=== PATIENT | male | born 2000 | race African-American/Black ===

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

== ENCOUNTER 2018-03-10 09:25 | Emergency (ER) | payer OTHER ==
[2018-03-10] MEDS ORDERED: NS 0.9% 1000 ML* 1,000 ML IV ONE (09:51)
[2018-03-10] MEDS ORDERED: Aspirin 81 mg CHEW TAB* 81 MG TAB.CHEW PO ONE (09:52)
[2018-03-10 10:47] LABS: ABS Basophils 0.1 10^3/ul (0-0.2); ABS Eosinophils 0.1 10^3/ul (0-0.6); ABS Lymphocytes 1.9 10^3/ul (1.0-4.8); ABS Monocytes 0.8 10^3/ul (0-0.8); ABS Neutrophils 4.7 10^3/ul (1.5-7.7); ABS Nucleated RBC 0 10^3/ul; Eosinophil % 1.3 % (0-6); Hematocrit 44 % (42-52); Hemoglobin 14.6 g/dl (14.0-18.0); Lymphocyte % 25.6 % (25-47); Mean Corpuscular HGB Conc 34 g/dl (31-36); Mean Corpuscular Hemoglobin 30 pg (27-31); Mean Corpuscular Volume 90 fL (80-94); Mean Platelet Volume 8.5 um3 (7.4-10.4); Nucleated Red Blood Cells % 0; Platelet Count 181 10^3/ul (150-450); Red Blood Count 4.83 10^6/ul (4.0-5.4); Red Cell Distribution Width 14 % (10.5-15); White Blood Count 7.6 10^3/ul (3.5-10.8)
[2018-03-10 10:54] LABS: INR 1.06 (0.77-1.02)
--- NOTE | 2018-03-10 11:08 | RAD ---
HISTORY: Chest pain COMPARISONS: None VIEWS: 1: frontal portable view of the chest at 10:40 AM FINDINGS: LINES AND TUBES: None. CARDIOMEDIASTINAL SILHOUETTE: The cardiomediastinal silhouette is normal for portable technique. PLEURA: The costophrenic angles are sharp. No pleural abnormalities are noted. LUNG PARENCHYMA: The lungs are clear. ABDOMEN: The upper abdomen is clear. There is no subphrenic gas. BONES AND SOFT TISSUES: No bone or soft tissue abnormalities are noted. IMPRESSION: NO ACTIVE CARDIOPULMONARY DISEASE.
[2018-03-10] MEDS ORDERED: Ketorolac INJ* 30 MG/ML 1 ML VIAL IV ONE (12:30)
--- NOTE | 2018-03-10 14:49 | ECHO ---
Patient: DANGELO PARK [facility] Rec#: [id number] : 2000 Date: 03/10/2018 Age: 17y Height: 187.96 cm / 74.0 in Weight: 74.84 kg / 164.9 lbs Sex: M BSA: 2 Room#: -5 Admit Date#: 03/10/2018 Type: Inpatient Referring: Darius Jimenez MD Reading: Flor Melton MD Personal Care Service Provider: Ana Quiroz [facility] Transthoracic Echocardiogram Indication: CP//HOCM BP: 136/69 HR: 65 Rhythm: NSR Findings History: Familial HOCM,CP. Technical Comments: The study quality is good. Completed at 1337. Left Ventricle: The left ventricular chamber size is mildly dilated. Mild concentric left ventricular hypertrophy is observed. Global left ventricular wall motion and contractility are within normal limits. There is normal left ventricular systolic function. The estimated ejection fraction is 60-65%. Normal left ventricular diastolic filling is observed. Left Atrium: The left atrial chamber size is normal. Right Ventricle: The right ventricular cavity size is normal. The right ventricular global systolic function is low normal. Right Atrium: The right atrial cavity size is normal. Aortic Valve: The aortic valve is trileaflet. There is no evidence of aortic valve thickening. There is a trace of aortic regurgitation. There is no evidence of aortic stenosis. Mitral Valve: The mitral valve leaflets are mildly thickened. There is a trace of mitral regurgitation. There is no evidence of mitral stenosis. Tricuspid Valve: The tricuspid valve leaflets are normal. There is mild tricuspid regurgitation. There is evidence of borderline pulmonary hypertension. There is no tricuspid stenosis. Pulmonic Valve: The pulmonic valve appears normal. There is no evidence of pulmonic regurgitation. There is no pulmonic stenosis. Pericardium: The pericardium appears normal. Aorta: There is no dilatation of the ascending aorta. There is no dilatation of the aortic arch. There is no dilation of the aortic root. Pulmonary Artery: The main pulmonary artery appears normal. Venous: The inferior vena cava is dilated. There is a greater than 50% respiratory change in the inferior vena cava dimension. Conclusions Mild LV chamber dilatation and mild concentric left ventricular hypertrophy observed. Global left ventricular wall motion and contractility are within normal limits. The estimated ejection fraction is 60-65%. Normal left ventricular diastolic filling is observed. The right ventricular global systolic function is low normal. All valves appear structurally normal. There is a trace of aortic regurgitation. There is a trace of mitral regurgitation. There is mild tricuspid regurgitation. There is evidence of borderline pulmonary hypertension: 37 mmHg. The pericardium appears normal. Prior echo nt available at the time of this reading to compare. Measurements Name Value Normal Range RVIDd (AP) 2D 2.3 cm (0.9 - 2.6) RVDdMajor (2D) 4.3 cm (2.2 - 4.4) RAd ISD 4CH 4.7 cm (3.4 - 4.9) RA (A4C)W 3.8 cm (2.9 - 4.6) IVSd (2D) 1.3 cm (0.6 - 1) LVPWd (2D) 1.4 cm (0.6 - 1) LVIDd (2D) 5.5 cm (3.6 - 5.4) LVIDs (2D) 3.6 cm - LV FS (2D) 35 % (25 - 45) Aortic Annulus 2 cm (1.4 - 2.6) Ao root diameter (2D) 3.2 cm (2.1 - 3.5) Ascending Ao 2.4 cm (2.1 - 3.4) Aortic arch 1.9 cm (1.8 - 3.4) Descending Ao 1.3 cm - LA dimension (AP) 2D 3.1 cm (2.3 - 3.8) LAd ISD 4CH 5.4 cm (2.9 - 5.3) Name Value Normal Range LA ESV SP 4CH (A/L) 62 ml - LA ESV SP 2CH (A/L) 43 ml - LA ESV BP (A/L) 55 ml - LA ESV BP (A/L) index 27.73 ml/m2 - LA ESV SP 4CH (MOD) 55 ml - LA ESV SP 2CH (MOD) 41 ml - Name Value Normal Range MV E-wave Vmax 0.8 m/sec - MV deceleration time 230 msec - MV A-wave Vmax 0.5 m/sec - MV E:A ratio 1.69 ratio - LV septal e' Vmax 0.12 m/sec - LV lateral e' Vmax 0.19 m/sec - LV E:e' septal ratio 6.67 ratio - LV E:e' lateral ratio 4.21 ratio - Name Value Normal Range AV Vmax 1.4 m/sec - AV VTI 29.5 cm - AV peak gradient 7.77 mmHg - AV mean gradient 4.42 mmHg - LVOT Vmax 1 m/sec - LVOT VTI 20.6 cm - LVOT peak gradient 4.15 mmHg - LVOT mean gradient 2.06 mmHg - Name Value Normal Range TR Vmax 2.7 m/sec - TR peak gradient 29 mmHg - RAP 8 mmHg - RVSP 37 mmHg - IVC diameter 2.3 cm - Name Value Normal Range PV Vmax 0.9 m/sec - PV peak gradient 3.38 mmHg -
[2018-03-10] MEDS ORDERED: Ketorolac INJ* 30 MG/ML 1 ML VIAL IV PUSH ONE (16:01)
[2018-03-10 18:12] VITALS: BP 114/79
--- NOTE | 2018-03-10 19:28 | ED ---
Herminio Rivera Nilda, scribed for Darius Jimenez MD on 03/10/18 at 1012 . HPI Chest Pain - HPI Summary HPI Summary: This patient is a 17 year old M presenting to [facility] with a chief complaint of constant L-sided CP since last night while at rest. Last week pt reports back pain originally thought to be due to exercise. Back pain resolved but returned last night accompanied by CP. Back pain once again resolved but CP remains. The patient rates the aching chest pain 7/10 in severity. He states previous similar episode in high school, for which he was evaluated and Dx with Hypertrophic Cardiomyopathy. Pt states condition had caused pain and palpitations in the past. Symptoms aggravated by movement and deep inspiration, and alleviated by nothing. Patient reports recent travel to [place] by plane. Pt states no daily medications. - History of Current Complaint Chief Complaint: EDChestPainROMI Time Seen by Provider: 03/10/18 10:08 Hx Obtained From: Patient Onset/Duration: Started Days Ago, Still Present Timing: Constant Current Severity: Severe Pain Intensity: 7 Pain Scale Used: 0-10 Numeric Chest Pain Location: Left Lateral Chest Pain Radiates: No Character: Dull/Aching Aggravating Factor(s): Movement, Deep Breaths Alleviating Factor(s): Nothing Associated Signs and Symptoms: Positive: Other: - back pain (resolved) - Allergy/Home Medications Allergies/Adverse Reactions: Allergies Allergy/AdvReac Type Severity Reaction Status Date / Time No Known Allergies Allergy Verified 09/22/17 10:23 Home Medications: Home Medications NK [No Home Medications Reported] 03/10/18 [History Confirmed 03/10/18] PMH/Surg Hx/FS Hx/Imm Hx Endocrine/Hematology History: Denies: Hx Diabetes Cardiovascular History: Reports: Other Cardiovascular Problems/Disorders - Hypertrophic cardiomyopathy Denies: Hx Hypertension Infectious Disease History: No Infectious Disease History: Denies: Traveled Outside the US in Last 30 Days - Family History Known Family History: Positive: Hypertension - mother - Social History Alcohol Use: Occasionally Substance Use Type: Reports: Marijuana Substance Use Comment - Amount & Last Used: 2-3 x / month Smoking Status (MU): Never Smoked Tobacco Review of Systems Positive: Chest Pain Positive: Other - back pain (resolved) All Other Systems Reviewed And Are Negative: Yes Physical Exam - Summary Physical Exam Summary: Appearance: The patient is well-nourished in no acute distress and in no acute pain. Skin: The skin is warm and dry and skin color reflects adequate perfusion. HEENT: The head is normocephalic and atraumatic. The pupils are equal and reactive. The conjunctivae are clear and without drainage. Nares are patent and without drainage. Mouth reveals moist mucous membranes and the throat is without erythema and exudate. The external ears are intact. The ear canals are patent and without drainage. The tympanic membranes are intact. Neck: the neck is supple with full range of motion and non-tender. There are no carotid bruits. There is no neck vein distension. Respiratory: Mildly tender left anterior chest wall. Lungs are clear to auscultation. Breath sounds slightly decreased on left. Cardiovascular: Heart is regular rate and rhythm. There is no murmur or rub auscultated. There is no peripheral edema and pulses are symmetrical and equal. Cannot appreciate murmur with valsalva and squat. Abdomen: The abdomen is soft and non-tender. There are normal bowel sounds heard in all four quadrants and there is no organomegaly palpated. Musculoskeletal: There is no back tenderness noted. Extremities are non-tender with full range of motion. There is good capillary refill. There is no peripheral edema or calf tenderness elicited. Neurological: Patient is alert and oriented to person, place and time. The patient has symmetrical motor strength in all four extremities. Cranial nerves are grossly intact. Deep tendon reflexes are symmetrical and equal in all four extremities. Psychiatric: The patient has an appropriate affect and does not exhibit any anxiety or depression. Triage Information Reviewed: Yes Vital Signs On Initial Exam: Initial Vitals Temp Pulse Resp BP Pulse Ox 99.7 F 61 18 136/72 98 03/10/18 09:32 03/10/18 09:32 03/10/18 09:32 03/10/18 09:32 03/10/18 09:32 Vital Signs Reviewed: Yes Diagnostics - Vital Signs Vital Signs Temp Pulse Resp BP Pulse Ox 03/10/18 09:32 99.7 F 61 18 136/72 98 - Laboratory Lab Results: Lab Results 03/10/18 03/10/18 03/10/18 Range/Units 09:51 10:05 10:05 WBC 7.6 (3.5-10.8) 10^3/ul RBC 4.83 (4.0-5.4) 10^6/ul Hgb 14.6 (14.0-18.0) g/dl Hct 44 (42-52) % MCV 90 (80-94) fL MCH 30 (27-31) pg MCHC 34 (31-36) g/dl RDW 14 (10.5-15) % Plt Count 181 (150-450) 10^3/ul MPV 8.5 (7.4-10.4) um3 Neut % (Auto) 61.7 (38-83) % Lymph % (Auto) 25.6 (25-47) % [place] % (Auto) 10.7 H (0-7) % Eos % (Auto) 1.3 (0-6) % Baso % (Auto) 0.7 (0-2) % Absolute Neuts (auto) 4.7 (1.5-7.7) 10^3/ul Absolute Lymphs (auto) 1.9 (1.0-4.8) 10^3/ul Absolute Monos (auto) 0.8 (0-0.8) 10^3/ul Absolute Eos (auto) 0.1 (0-0.6) 10^3/ul Absolute Basos (auto) 0.1 (0-0.2) 10^3/ul Absolute Nucleated RBC 0 10^3/ul Nucleated RBC % 0 ESR 25 H (0-14) mm/Hr INR (Anticoag Therapy) 1.06 H (0.77-1.02) APTT 33.0 (26.0-36.3) seconds D-Dimer, Quantitative < 200 (Less Than 230) ng/mL Sodium (139-145) mmol/L Potassium (3.5-5.0) mmol/L Chloride (101-111) mmol/L Carbon Dioxide (22-32) mmol/L Anion Gap (2-11) mmol/L BUN (6-24) mg/dL Creatinine (0.67-1.17) mg/dL Est GFR ( Amer) (>60) Est GFR (Non-Af Amer) (>60) BUN/Creatinine Ratio (8-20) Glucose (70-100) mg/dL Lactic Acid (0.5-2.0) mmol/L Calcium (8.6-10.3) mg/dL Magnesium (1.9-2.7) mg/dL Total Bilirubin (0.2-1.0) mg/dL AST (13-39) U/L ALT (7-52) U/L Alkaline Phosphatase (34-104) U/L Total Creatine Kinase (10-223) U/L CK-MB (CK-2) (0.6-6.3) ng/mL Troponin I (<0.04) ng/mL C-Reactive Protein (< 5.00) mg/L B-Natriuretic Peptide 8 ( - 100) pg/mL Total Protein (6.4-8.9) g/dL Albumin (3.2-5.2) g/dL Globulin (2-4) g/dL Albumin/Globulin Ratio (1-3) TSH (0.34-5.60) mcIU/mL 03/10/18 03/10/18 03/10/18 Range/Units 10:05 10:05 13:23 WBC (3.5-10.8) 10^3/ul RBC (4.0-5.4) 10^6/ul Hgb (14.0-18.0) g/dl Hct (42-52) % MCV (80-94) fL MCH (27-31) pg MCHC (31-36) g/dl RDW (10.5-15) % Plt Count (150-450) 10^3/ul MPV (7.4-10.4) um3 Neut % (Auto) (38-83) % Lymph % (Auto) (25-47) % [place] % (Auto) (0-7) % Eos % (Auto) (0-6) % Baso % (Auto) (0-2) % Absolute Neuts (auto) (1.5-7.7) 10^3/ul Absolute Lymphs (auto) (1.0-4.8) 10^3/ul Absolute Monos (auto) (0-0.8) 10^3/ul Absolute Eos (auto) (0-0.6) 10^3/ul Absolute Basos (auto) (0-0.2) 10^3/ul Absolute Nucleated RBC 10^3/ul Nucleated RBC % ESR (0-14) mm/Hr INR (Anticoag Therapy) (0.77-1.02) APTT (26.0-36.3) seconds D-Dimer, Quantitative (Less Than 230) ng/mL Sodium 137 L (139-145) mmol/L Potassium 3.7 (3.5-5.0) mmol/L Chloride 100 L (101-111) mmol/L Carbon Dioxide 30 (22-32) mmol/L Anion Gap 7 (2-11) mmol/L BUN 13 (6-24) mg/dL Creatinine 1.07 (0.67-1.17) mg/dL Est GFR ( Amer) 114.5 (>60) Est GFR (Non-Af Amer) 89.0 (>60) BUN/Creatinine Ratio 12.1 (8-20) Glucose 82 (70-100) mg/dL Lactic Acid 0.8 (0.5-2.0) mmol/L Calcium 9.8 (8.6-10.3) mg/dL Magnesium 2.2 (1.9-2.7) mg/dL Total Bilirubin 0.70 (0.2-1.0) mg/dL AST 29 (13-39) U/L ALT 24 (7-52) U/L Alkaline Phosphatase 69 (34-104) U/L Total Creatine Kinase 571 H (10-223) U/L CK-MB (CK-2) 1.5 (0.6-6.3) ng/mL Troponin I 0.07 H* 0.06 H* (<0.04) ng/mL C-Reactive Protein 23.22 H (< 5.00) mg/L B-Natriuretic Peptide ( - 100) pg/mL Total Protein 7.8 (6.4-8.9) g/dL Albumin 4.3 (3.2-5.2) g/dL Globulin 3.5 (2-4) g/dL Albumin/Globulin Ratio 1.2 (1-3) TSH 0.93 (0.34-5.60) mcIU/mL 03/10/18 Range/Units 16:05 WBC (3.5-10.8) 10^3/ul RBC (4.0-5.4) 10^6/ul Hgb (14.0-18.0) g/dl Hct (42-52) % MCV (80-94) fL MCH (27-31) pg MCHC (31-36) g/dl RDW (10.5-15) % Plt Count (150-450) 10^3/ul MPV (7.4-10.4) um3 Neut % (Auto) (38-83) % Lymph % (Auto) (25-47) % [place] % (Auto) (0-7) % Eos % (Auto) (0-6) % Baso % (Auto) (0-2) % Absolute Neuts (auto) (1.5-7.7) 10^3/ul Absolute Lymphs (auto) (1.0-4.8) 10^3/ul Absolute Monos (auto) (0-0.8) 10^3/ul Absolute Eos (auto) (0-0.6) 10^3/ul Absolute Basos (auto) (0-0.2) 10^3/ul Absolute Nucleated RBC 10^3/ul Nucleated RBC % ESR (0-14) mm/Hr INR (Anticoag Therapy) (0.77-1.02) APTT (26.0-36.3) seconds D-Dimer, Quantitative (Less Than 230) ng/mL Sodium (139-145) mmol/L Potassium (3.5-5.0) mmol/L Chloride (101-111) mmol/L Carbon Dioxide (22-32) mmol/L Anion Gap (2-11) mmol/L BUN (6-24) mg/dL Creatinine (0.67-1.17) mg/dL Est GFR ( Amer) (>60) Est GFR (Non-Af Amer) (>60) BUN/Creatinine Ratio (8-20) Glucose (70-100) mg/dL Lactic Acid (0.5-2.0) mmol/L Calcium (8.6-10.3) mg/dL Magnesium (1.9-2.7) mg/dL Total Bilirubin (0.2-1.0) mg/dL AST (13-39) U/L ALT (7-52) U/L Alkaline Phosphatase (34-104) U/L Total Creatine Kinase (10-223) U/L CK-MB (CK-2) (0.6-6.3) ng/mL Troponin I 0.08 H* (<0.04) ng/mL C-Reactive Protein (< 5.00) mg/L B-Natriuretic Peptide ( - 100) pg/mL Total Protein (6.4-8.9) g/dL Albumin (3.2-5.2) g/dL Globulin (2-4) g/dL Albumin/Globulin Ratio (1-3) TSH (0.34-5.60) mcIU/mL Result Diagrams: 03/10/18 10:05 03/10/18 10:05 Lab Statement: Any lab studies that have been ordered have been reviewed, and results considered in the medical decision making process. - Radiology CXR Radiology Interpretation Completed By: Radiologist - CXR reveals no active cardiopulmonary disease. Dr. Jimenez has reviewed this report. - EKG 0936 Cardiac Rate: NL EKG Rhythm: Sinus Rhythm EKG Interpretation: LVH, probable early repolarization with a subtle STEMI score of 21.8. 1230 Cardiac Rate: NL EKG Rhythm: Sinus Rhythm EKG Interpretation: similar to first. Possible slight different lead placement. EKG Comparison: No Significant Change - from first EKG 03/10/18 - Additional Comments Diagnostic Additional Comments: Transthoracic Echocardiogram, per radiologist, reveals: Mild LV chamber dilatation and mild concentric left ventricular hypertrophy observed. Global left ventricular wall motion and contractility are within normal limits. The estimated ejection fraction is 60-65%. Normal left ventricular diastolic filling is observed. The right ventricular global systolic function is low normal. All valves appear structurally normal. There is a trace of aortic regurgitation. There is a trace of mitral regurgitation. There is mild tricuspid regurgitation. There is evidence of borderline pulmonary hypertension: 37 mmHg. The pericardium appears normal. Prior echo nt available at the time of this reading to compare. Dr. Jimenez has reviewed this report. Chest Pain Course/Dx - Course Course Of Treatment: Mr. Ngo presented with a C/O sharp left-sided back pain starting last night that then went around front and has been only in the front since. It is not poositional although movement does aggravate it some. There are no other associated symptoms or exacerbating or relieving factors. He did some lifting a few days ago and traveled a few weeks ago. He has a history of hypertrophic cardiomyopathy. His initial ECG was concerning with ST elevations anteriorly. It met Subtle STEMI criteria for early repolarization. It also showed LVH. His initial troponin was 0.07. Dr. Melton was contacted and came and saw him and performed an Echo which showed no acute wall motion abnormality. Three ECGs and troponins were unchanged and his pain improved a lot with ketorolac. She felt that he was safe for D/C back to [place] and referral to cardiology. This may be pericarditis. His CRP and ESR werre a bit elevated. - Diagnoses Provider Diagnoses: Chest wall pain, Pericarditis - Provider Notifications Discussed Care Of Patient With: Flor Melton - Cardiology Time Discussed With Above Provider: 12:06 Instructed by Provider To: Other - discussed pt case and agrees to look at EKG. [1223] Dr. Melton agrees to see pt in ED. [1231] recommends echocardiogram. Discharge - Sign-Out/Discharge Documenting (check all that apply): Discharge - Discharge Plan Condition: Improved Disposition: HOME Patient Education Materials: Chest Pain (ED), Acute Pericarditis (ED) [facility] - 3 Days Additional Instructions: Follow up with [facility] in to 2-3 days. Please also consult [facility] at . Return to the emergency department for any new or worsening symptoms. - Billing Disposition and Condition Condition: IMPROVED Disposition: HOME The documentation as recorded by the Herminio antony Nilda accurately reflects the service I personally performed and the decisions made by me, Darius Jimenez MD.
--- NOTE | 2018-03-10 21:34 | CONS ---
CC: [facility] at [facility] * CARDIOLOGY CONSULTATION NOTE: DATE OF CONSULT: 03/10/18 - EMERGENCY DEPT REASON FOR CONSULTATION: Chest pain and abnormal ECG. CHIEF COMPLAINT: Chest pain. HISTORY OF PRESENT ILLNESS: Teo is a nice 17-year-old [employer] student with a history of hypertrophic cardiomyopathy who has been evaluated at [facility]. The patient states that last week he thought he pulled the muscles , did not think much about it, it got better, but then last night he was just studying and seated and developed some back discomfort. He then went to bed and this got worse radiating into the chest and he presented to the emergency department. The patient denies any recent fevers, chills, viral syndromes. He has not tried any medications out of the hospital to relieve the pain and declined nonsteroidal offered in the emergency department. The pain has some positional component to it. He denied any pleuritic component and as above, it did not occur on exertion. The patient has a past medical history of hypertrophic cardiomyopathy diagnosed as a teenager when he had palpitations at about age 12 or 13 and then genetically confirmed in 2011 (unable to read the fax with the genetic typing). The patient denies any recent recreational drug use or palpitations. The patient has a past medical history of hypertrophic cardiomyopathy. He had pharyngitis over the summer. OUTPATIENT MEDICATIONS: None. ALLERGIES: He has no known drug allergies. FAMILY HISTORY: Positive for hypertrophic cardiomyopathy with his brother, mother and maternal grandmother. SOCIAL HISTORY: The patient is a student at [employer]. No recent history of alcohol abuse or recreational drug abuse and as above, no recent ingestion of cocaine. Hx marajuana use in the past. REVIEW OF SYSTEMS: See history of present illness. Positive for recent musculoskeletal pain following weight lifting workouts. Negative for fevers, chills, sweats, change in bowel or bladder habits. Negative for exertional chest pain or decline in functional ability. No recent weight gain, weight loss , diarrhea, constipation. The patient's blood pressure has been mildly elevated in the emergency department and he is unaware of history of high blood pressure. The patient states that he traveled to [place] in January, otherwise no recent travel history. PHYSICAL EXAM: On exam, the patient is 6 feet 2 inches, weighs 165 pounds with a BMI of 21. Vitals: Blood pressure 155/66, pulse is 62, respiratory rate is 22, temperature 98.2. General Appearance: Lean, fit-appearing young man, in no acute distress. Psychologically, pleasant and cooperative. Neurologically, awake, alert, oriented to person, place, and time. Cranial nerves II through XII intact. Grossly normal sensory and motor function in the upper and lower extremities. Normal gait. Skin: Warm, dry. No cyanosis, rashes, or other abnormalities. HEENT: Pupils are equal and round. Mucous membranes moist. Neck: Without increased JVP appreciated. No lymphadenopathy. Good carotid pulses without audible bruits. Breath sounds clear with good effort. No wheezes, rales or rhonchi. Coronary: S1, S2, regular. No murmurs, rubs, or extrasystole. Abdomen: Flat, active bowel sounds, soft, nontender. No hepatosplenomegaly. Radial pulses are strong and symmetrical. Posterior tibial pulses strong and symmetrical. Lower extremities are free of edema. DIAGNOSTIC STUDIES/LAB DATA: A 12-lead ECG in the emergency department at 09: 36 this morning shows normal sinus rhythm, 58 beats a minute, QRS axis +30, normal AV and IV conduction times with abnormal ST elevation V1, V2 and inverted T waves V1 and V2, consistent with hypertrophic cardiomyopathy. Repeat EKG at 12:30 showed sinus rhythm with heart rate 58 beats a minute, R prime V1 and V2 consistent with an incomplete right bundle branch block and ST morphology remains abnormal with ST elevation now V through V3, possible lead placement issue. Echocardiogram done here confirmed symmetrical left ventricular hypertrophy with a wall thickness of 1.3 to 1.4 cm. He had mild left ventricular chamber dilatation. Wall motion and contractility were normal with an ejection fraction of 60% to 65%. He had trace to mild valvular insufficiency and PA pressure was 37 mmHg. Right ventricular systolic function low normal. Reports from [facility] reviewed and hard to read due to poor fax quality. Prior ejection fraction was 61%. Right ventricular function was borderline decreased than right ventricular systolic function. Borderline concentric left ventricular wall thickness (1.2 cm). EKG done at [facility] reviewed and abnormal ST of similar morphology, not significantly changed from EKGs in our ED. Treadmill stress test from 2014 at [facility] with PO2 showed he had had the right bundle-branch block during testing. Resting blood pressure 130/80 with appropriate response to exercise. No inducible ischemia. Labs here show white count 7.6, hemoglobin 14.6, hematocrit 44, platelets 181, increased monos 10.7, sedimentation rate 25. INR 1.06, PTT 33. D-dimer less than 200. Sodium 137, potassium 3.7, chloride 100, bicarb 30, BUN 13, creatinine 1.07, glucose 82. Magnesium 2.2. AST 29, ALT 24. CPK 571, MB fraction 1.5. Troponin #1 is 0.07, troponin #2 is 0.06. CRP of 23.22. BNP of 8. TSH 0.93. IMPRESSION AND PLAN: In summary, Teo Ngo is a 17-year-old male with concentric hypertrophic cardiomyopathy and a family history of hypertrophic cardiomyopathy, who presented to the emergency department with chest pain. His ECG is abnormal but not significantly changed from baseline studies. He has very mild elevation in troponin and additionally mild elevation in inflammatory markers of C- reactive protein and sedimentation rate. His echo showed some right ventricular hypokinesis but this was seen on the [facility] report as well and no evidence of pericardial effusion. I do not think this presentation is related to ischemic heart disease, the differential of his pain would be musculoskeletal and/or pericardial, some pain was reproducible but I would doubt the musculoskeletal pain would lead to the elevated C-reactive protein, sed rate and increased monocytosis. The current plan is to try Toradol as a nonsteroidal to see if it relieves the pain. If so, we would recommend outpatient nonsteroidals for at least a week. At this presentation, an inflammatory markers are mild, we could hold off on colchicine for now but adding colchicine would be another option for him if he is having persistent pain. I would advise avoiding the gym and exercise until his symptoms have completely resolved. He can follow up in our office within a week to see how he is doing clinically, and I would recommend followup inflammatory markers through [facility]. Increased CPK is noted and this could be related to - Citizen [place] heritage or recent working out, and I would recommend repeating this as well as an outpatient when it is at baseline to see what his levels are when he is free of chest pain as well. Additional recommendation will be made pending his clinical course and response to nonsteroidals while in the emergency department. [id number]/[facility] #: [id number] YESSICA
== END 2018-03-10 18:12 | disposition home or self-care (01) ==
LOC: ED 09:25
DX: R07.89 Other chest pain (principal); I31.9 Disease of pericardium, unspecified; M54.9 Dorsalgia, unspecified
CPT/HCPCS: 36415; 71045; 80053; 82550; 82553; 83605; 83735; 83880; 84443; 84484; 85025; 85379; 85610; 85652; 85730; 86140; 93005; 93306; 96374; 96375; 99283; A9270-GY; J1885